=== PATIENT | female | born 1955 | race Hispanic/Latino ===

== ENCOUNTER 2018-03-29 14:09 | Emergency (ER) | payer MEDICARE ==
[~2018-03-29] VITALS: Ht 157.5 cm; Wt 65.3 kg
--- NOTE | 2018-03-29 16:05 | Diagnostic Imaging Report ---
LEFT FOOT X-RAY - 3 VIEWS HISTORY: \S\pain \[id number] \[id number] COMPARISON: None available. FINDINGS: Bones: Acute/subacute mildly displaced avulsion fracture of the medial aspect of the navicular bone with extension into the talonavicular joint. Osseous alignment is within normal limits. Joints: The joint spaces are well-maintained. Soft tissues: Soft tissue swelling surrounding the left foot. Punctate hyperdensities overlying the fourth seen only on one view may represent an artifact from the film. IMPRESSION: Acute/subacute mildly displaced avulsion fracture of the medial left navicular bone. Recommend orthopedic consultation and follow-up x-ray in 2 weeks. Signed by: Dr. Rashida Navas M.D. on 03/29/2018 4:01 PM
[2018-03-29] MEDS ORDERED: TYLENOL WITH C1 EACH PO (17:12)
== END 2018-03-29 20:00 | disposition home or self-care (01) ==
LOC: ER 14:09
DX: S93.622A Sprain of tarsometatarsal ligament of left foot, initial encounter (principal); X50.9XXA Other and unspecified overexertion or strenuous movements or postures, initial encounter; Y92.008 Other place in unspecified non-institutional (private) residence as the place of occurrence of the external cause; E78.5 Hyperlipidemia, unspecified; E07.9 Disorder of thyroid, unspecified
CPT/HCPCS: 99283